=== PATIENT | female | born 1975 | race African-American/Black ===

== ENCOUNTER 2018-08-13 11:51 | Emergency (ER) | payer MEDICAID ==
[~2018-08-13] VITALS: Ht 152.4 cm; Wt 100.0 kg
[2018-08-13 16:13] VITALS: BP 153/90
== END 2018-08-13 18:04 | disposition left against medical advice (07) ==
LOC: ER 11:51
DX: Z53.21 Procedure and treatment not carried out due to patient leaving prior to being seen by health care provider (principal)
CPT/HCPCS: 93005

== ENCOUNTER 2018-10-06 13:00 | Emergency (ER) | payer MEDICAID ==
[~2018-10-06] VITALS: Ht 162.6 cm; Wt 115.0 kg
[2018-10-06 13:38] LABS: BASOPHILS % 0.5 % (0.0-2.0); EOSINOPHILS % 0.1 % (0.0-5.0); HEMATOCRIT. 40.7 % (36.0-48.0); HEMOGLOBIN. 13.5 g/dL (12.0-16.0); LYMPHOCYTES % 15.6 % (20.0-50.0); MEAN CORPUSCULAR HEMOGLOBIN 26.9 pg (28.0-32.0); MEAN CORPUSCULAR VOLUME 81.3 fL (81.0-99.0); MEAN PLATELET VOLUME 8.2 fl (7.4-10.4); MONOCYTES % 2.5 % (2.0-8.0); NEUTROPHILS % 81.3 % (40.0-76.0); PLATELET 372 x1000/uL (130-400); RED BLOOD CELL COUNT 5.01 mill/uL (4.2-5.4); RED CELL DISTRIBUTION WIDTH 14.7 % (11.6-14.6)
[2018-10-06 13:44] LABS: PROTHROMBIN TIME 10.5 sec (9.6-11.0)
[2018-10-06 14:05] LABS: CHLORIDE 107 mEq/L (98-107)
[2018-10-06 14:40] LABS: CLARITY URINE CLEAR (CLEAR); COLOR URINE YELLOW (YELLOW); KETONES URINE 3+ (NEGATIVE); LEUKOCYTE ESTERASE URINE NEGATIVE (NEGATIVE); NITRITE URINE NEGATIVE (NEGATIVE); OCCULT BLOOD URINE NEGATIVE (NEGATIVE); PROTEIN URINE NEGATIVE (NEGATIVE); SPECIFIC GRAVITY URINE 1.033 (1.005-1.030)
[2018-10-06] MEDS ORDERED: ONDANSETRON HCL 4MG/2ML INJ IV ONE (16:30)
[2018-10-06] MEDS ORDERED: FENTANYL CITRATE/PF 50MCG/ML 2ML VIAL IV ONE (16:30)
[2018-10-06] MEDS ORDERED: SODIUM CHLORIDE 0.9% 1,000 ML IV ONE (16:30)
[2018-10-06 17:06] VITALS: BP 117/63
== END 2018-10-06 18:02 | disposition home or self-care (01) ==
LOC: ER 13:00
DX: R10.33 Periumbilical pain (principal); R11.2 Nausea with vomiting, unspecified; E86.0 Dehydration; K59.00 Constipation, unspecified; R06.02 Shortness of breath; E87.6 Hypokalemia; K57.30 Diverticulosis of large intestine without perforation or abscess without bleeding; C50.919 Malignant neoplasm of unspecified site of unspecified female breast; I10 Essential (primary) hypertension; Z71.89 Other specified counseling
CPT/HCPCS: 36415; 71045; 74176; 80053; 81003; 81025; 83690; 84484; 85025; 85610; 93005; 96374; 96375; 99284; J2405; J3010; J7030; Z7610

== ENCOUNTER 2019-02-06 03:05 | Emergency (ER) | payer MEDICAID ==
[~2019-02-06] VITALS: Ht 162.6 cm; Wt 109.0 kg
[2019-02-06] MEDS ORDERED: MORPHINE SULFATE 4 MG/ML CPJ (NOT FOR IM USE) IV STA (03:25)
[2019-02-06] MEDS ORDERED: ONDANSETRON HCL 4MG/2ML INJ IV STA (03:25)
[2019-02-06 03:39] LABS: BASOPHILS % 0.7 % (0.0-2.0); HEMATOCRIT. 39.4 % (36.0-48.0); HEMOGLOBIN. 13.5 g/dL (12.0-16.0); LYMPHOCYTES % 14.1 % (20.0-50.0); MEAN CORPUSCULAR HEMOGLOBIN 28.3 pg (28.0-32.0); MEAN CORPUSCULAR VOLUME 82.5 fL (81.0-99.0); MEAN PLATELET VOLUME 8.4 fl (7.4-10.4); MONOCYTES % 3.5 % (2.0-8.0); NEUTROPHILS % 81.7 % (40.0-76.0); PLATELET 346 x1000/uL (130-400); RED BLOOD CELL COUNT 4.77 mill/uL (4.2-5.4); RED CELL DISTRIBUTION WIDTH 14.4 % (11.6-14.6)
[2019-02-06 03:46] LABS: CHLORIDE 102 mEq/L (98-107)
[2019-02-06 03:48] LABS: PARTIAL THROMBOPLASTIN TIME 27.2 sec (23.4-31.0); PROTHROMBIN TIME 10.7 sec (9.6-11.0)
[2019-02-06] MEDS ORDERED: POTASSIUM CHLORIDE INJ 40 MEQ in DEXT 5% WATER 500 ML IV NR (04:00)
[2019-02-06] MEDS ORDERED: KETOROLAC 30MG/ML VIAL IV ONE (05:15)
[2019-02-06] MEDS ORDERED: IOHEXOL-350 100 ML BOTTLE ONE (06:03)
[2019-02-06 07:58] VITALS: BP 171/86
== END 2019-02-06 07:58 | disposition home or self-care (01) ==
LOC: ER 03:24
DX: R07.89 Other chest pain (principal); I10 Essential (primary) hypertension; C50.919 Malignant neoplasm of unspecified site of unspecified female breast
CPT/HCPCS: 36415; 71275; 80053; 81025; 83880; 84484; 85025; 85610; 85730; 93005; 96365; 96375; 99284; J1885; J2270; J2405; J3480; J7060; Q9967

== ENCOUNTER 2019-03-27 21:37 | Emergency (ER) | payer MEDICAID ==
[~2019-03-27] VITALS: Ht 172.7 cm; Wt 77.0 kg
[2019-03-27] MEDS ORDERED: KETOROLAC 30MG/ML VIAL IV STA (22:26)
[2019-03-27] MEDS ORDERED: ONDANSETRON HCL 4MG/2ML INJ IV STA (22:26)
[2019-03-27 23:02] LABS: BASOPHILS % 0.4 % (0.0-2.0); EOSINOPHILS % 0.3 % (0.0-5.0); HEMATOCRIT. 43.8 % (36.0-48.0); HEMOGLOBIN. 14.6 g/dL (12.0-16.0); LYMPHOCYTES % 11.6 % (20.0-50.0); MEAN CORPUSCULAR HEMOGLOBIN 27.9 pg (28.0-32.0); MEAN CORPUSCULAR VOLUME 83.6 fL (81.0-99.0); MEAN PLATELET VOLUME 8.4 fl (7.4-10.4); MONOCYTES % 2.4 % (2.0-8.0); NEUTROPHILS % 85.3 % (40.0-76.0); PLATELET 333 x1000/uL (130-400); RED BLOOD CELL COUNT 5.24 mill/uL (4.2-5.4); RED CELL DISTRIBUTION WIDTH 14.3 % (11.6-14.6)
[2019-03-27 23:07] LABS: CHLORIDE 105 mEq/L (98-107)
[2019-03-28] MEDS ORDERED: POTASSIUM CHLORIDE 20MEQ TABLET SR PO SCH (00:15)
[2019-03-28] MEDS ORDERED: MORPHINE SULFATE 4 MG/ML CPJ (NOT FOR IM USE) IV SCH (02:15)
[2019-03-28] MEDS ORDERED: ONDANSETRON HCL 4MG TABLET PO SCH (02:15)
[2019-03-28 02:22] LABS: CLARITY URINE CLOUDY (CLEAR); COLOR URINE YELLOW (YELLOW); KETONES URINE 2+ (NEGATIVE); LEUKOCYTE ESTERASE URINE NEGATIVE (NEGATIVE); NITRITE URINE NEGATIVE (NEGATIVE); OCCULT BLOOD URINE NEGATIVE (NEGATIVE); PROTEIN URINE TRACE (NEGATIVE); SPECIFIC GRAVITY URINE 1.015 (1.005-1.030); UROBILINOGEN URINE 0.2 E.U./dL (0.2-1.0)
[2019-03-28 04:00] VITALS: BP 159/80
== END 2019-03-28 04:16 | disposition home or self-care (01) ==
LOC: ER 21:37
DX: R10.30 Lower abdominal pain, unspecified (principal); R11.2 Nausea with vomiting, unspecified; I10 Essential (primary) hypertension; E66.9 Obesity, unspecified; Z85.3 Personal history of malignant neoplasm of breast; Z68.25 Body mass index [BMI] 25.0-25.9, adult
CPT/HCPCS: 36415; 71045; 74176; 80053; 81003; 81025; 83605; 83690; 85025; 93005; 96374; 96375; 99284; J1885; J2270; J2405; Q0162

== ENCOUNTER 2020-01-05 20:48 | Inpatient (IN) | payer MEDICAID ==
[~2020-01-05] VITALS: Ht 152.4 cm; Wt 90.7 kg
[2020-01-05] MEDS ORDERED: ONDANSETRON HCL 4MG/2ML INJ IV STA (22:36)
[2020-01-05] MEDS ORDERED: SODIUM CHLORIDE 0.9% 1,000 ML IV ONE (22:36)
[2020-01-05] MEDS ORDERED: KETOROLAC 30MG/ML VIAL IV STA (22:36)
[2020-01-05 23:32] LABS: CLARITY URINE CLEAR (CLEAR); COLOR URINE YELLOW (YELLOW); KETONES URINE 3+ (NEGATIVE); LEUKOCYTE ESTERASE URINE NEGATIVE (NEGATIVE); NITRITE URINE NEGATIVE (NEGATIVE); OCCULT BLOOD URINE TRACE (NEGATIVE); PROTEIN URINE NEGATIVE (NEGATIVE); SPECIFIC GRAVITY URINE 1.018 (1.005-1.030); UROBILINOGEN URINE 0.2 E.U./dL (0.2-1.0)
[2020-01-05 23:43] LABS: CHLORIDE 104 mEq/L (98-107)
[2020-01-05 23:45] LABS: *AMPHETAMINES SCREEN URINE NEGATIVE (NEGATIVE); *BARBITURATES SCREEN URINE NEGATIVE (NEGATIVE); *BENZODIAZEPINES SCREEN URINE NEGATIVE (NEGATIVE); *COCAINE SCREEN URINE NEGATIVE (NEGATIVE); METHADONE URINE SCREEN NEGATIVE (NEGATIVE); OPIATES URINE SCREEN NEGATIVE (NEGATIVE); PHENCYCLIDINE URINE SCREEN NEGATIVE (NEGATIVE)
[2020-01-05 23:45] LABS: INR 1.1; PROTHROMBIN TIME 11.2 sec (9.6-11.0)
[2020-01-05 23:47] LABS: ETHANOL BLOOD < 10 mg/dL
[2020-01-05 23:49] LABS: BASOPHILS % 0.7 % (0.0-2.0); EOSINOPHILS % 0.1 % (0.0-5.0); HEMATOCRIT. 42.6 % (36.0-48.0); LYMPHOCYTES % 15.4 % (20.0-50.0); MEAN CORPUSCULAR HEMOGLOBIN 27.9 pg (28.0-32.0); MEAN CORPUSCULAR VOLUME 84.8 fL (81.0-99.0); MEAN PLATELET VOLUME 9.6 fl (7.4-10.4); MONOCYTES % 2.5 % (2.0-8.0); NEUTROPHILS % 81.3 % (40.0-76.0); PLATELET 317 x1000/uL (130-400); RED BLOOD CELL COUNT 5.03 mill/uL (4.2-5.4); RED CELL DISTRIBUTION WIDTH 14.4 % (11.6-14.6)
[2020-01-05 23:52] LABS: CANNABINOID URINE SCREEN PRESUMTIVE POSITIVE (NEGATIVE)
[2020-01-06] VITALS (7 sets, daily range): BP systolic 98–187; BP diastolic 53–106
[2020-01-06] MEDS ORDERED: POTASSIUM CHLORIDE INJ 40 MEQ in DEXT 5% WATER 500 ML IV ONE ×2
[2020-01-06] MEDS ORDERED: POTASSIUM CHLORIDE 20MEQ TABLET SR PO ONE
[2020-01-06] MEDS ORDERED: MORPHINE SULFATE 4 MG/ML CPJ (NOT FOR IM USE) IV STA (01:09)
[2020-01-06] MEDS ORDERED: ONDANSETRON HCL 4MG/2ML INJ IV STA (01:09)
[2020-01-06] MEDS ORDERED: HYDRALAZINE 20MG/ML VIAL IV ONE ×2 (01:15→03:15)
[2020-01-06] MEDS ORDERED: LORAZEPAM 2MG/ML CPJ IV ONE (03:15)
[2020-01-06] MEDS ORDERED: MORPHINE SULFATE 2 MG/ML CPJ (NOT FOR IM USE) IV PRN (05:15)
[2020-01-06] MEDS ORDERED: CLONIDINE 0.1MG TABLET PO PRN (05:15)
[2020-01-06] MEDS: LISINOPRIL 20MG TABLET PO SCH (06:40)
[2020-01-06] MEDS: AMLODIPINE 10MG TABLET PO SCH (06:40)
[2020-01-06] MEDS ORDERED: LABETALOL 5MG/ML SYR 20 MG/4 ML SYRINGE IV NR (08:45)
[2020-01-06] MEDS ORDERED: POTASSIUM CHLORIDE 20MEQ TABLET SR PO NR ×2 (08:45→15:45)
[2020-01-06] MEDS: ONDANSETRON HCL 4MG/2ML INJ IV PRN ×2 (10:03→18:48)
[2020-01-06] MEDS: OMEPRAZOLE 20MG CAPSULE EXTENDED RELEASE PO SCH (10:03)
[2020-01-06] MEDS ORDERED: ASPIRIN 81MG TABLET PO SCH (12:00)
[2020-01-06] MEDS: POTASSIUM CHLORIDE INJ 40 MEQ in DEXT 5% WATER 250 ML IV SCH ×2 (13:00→13:33)
[2020-01-06] MEDS ORDERED: DIATR MEGLU/DIATRIZOATE SOLN 30ML PO SCH (13:15)
[2020-01-06] MEDS: HYDROMORPHONE HCL/PF 2MG/ML CPJ IV PRN ×3 (13:34→22:57)
[2020-01-06] MEDS ORDERED: POTASSIUM CHLORIDE INJ 40 MEQ in DEXT 5% WATER 250 ML IV PRN ×2 (16:00→18:30)
[2020-01-06] MEDS ORDERED: OXYC-105 MT (16:12)
[2020-01-06] MEDS ORDERED: AMLO2.5T45 MT (16:12)
[2020-01-06] MEDS: DEXT 5%/0.45% NACL KCL 40MEQ/L 1,000 ML IV SCH (16:14)
[2020-01-06] MEDS ORDERED: IOHEXOL-350 100 ML BOTTLE ONE (23:15)
[2020-01-07] MEDS: HYDROMORPHONE HCL/PF 2MG/ML CPJ IV PRN ×4 (03:52→18:29)
[2020-01-07 04:00] VITALS: BP 121/57
[2020-01-07] MEDS: DEXT 5%/0.45% NACL KCL 40MEQ/L 1,000 ML IV SCH ×2 (05:28→18:31)
[2020-01-07] MEDS: OMEPRAZOLE 20MG CAPSULE EXTENDED RELEASE PO SCH (07:03)
[2020-01-07 07:49] LABS: BASOPHILS % 0.4 % (0.0-2.0); EOSINOPHILS % 0.7 % (0.0-5.0); HEMOGLOBIN. 12.9 g/dL (12.0-16.0); MEAN CORPUSCULAR HEMOGLOBIN 27.9 pg (28.0-32.0); MEAN CORPUSCULAR VOLUME 84.2 fL (81.0-99.0); MONOCYTES % 8.4 % (2.0-8.0); NEUTROPHILS % 58.5 % (40.0-76.0); PLATELET 290 x1000/uL (130-400); RED BLOOD CELL COUNT 4.63 mill/uL (4.2-5.4); RED CELL DISTRIBUTION WIDTH 14.1 % (11.6-14.6)
[2020-01-07 08:00] VITALS: BP 114/65
[2020-01-07] MEDS: LISINOPRIL 20MG TABLET PO SCH (08:53)
[2020-01-07] MEDS: AMLODIPINE 10MG TABLET PO SCH (08:54)
[2020-01-07 12:00] VITALS: BP 80/41
[2020-01-07 12:05] VITALS: BP 83/47
[2020-01-07] MEDS ORDERED: SODIUM CHLORIDE 0.9% 500 ML IV ONE (12:30)
[2020-01-07] MEDS: ONDANSETRON HCL 4MG/2ML INJ IV PRN ×2 (13:25→19:44)
[2020-01-07 16:00] VITALS: BP 88/54
[2020-01-07 20:00] VITALS: BP 97/51
[2020-01-07] MEDS ORDERED: BISACODYL 5MG TABLET PO NR (21:30)
[2020-01-07] MEDS ORDERED: METOCLOPRAMIDE HCL 10MG/2ML VIAL IV NR (21:30)
[2020-01-07] MEDS ORDERED: SORBITOL 70% SOLN 30ML PO NR (22:00)
[2020-01-07] MEDS: HYDROCODONE/ACETAMINOPHEN 10/325MG TABLET PO PRN (22:23)
[2020-01-08] VITALS: BP 136/75
[2020-01-08] MEDS: HYDROMORPHONE HCL/PF 2MG/ML CPJ IV PRN ×5 (00:37→23:34)
[2020-01-08 04:00] VITALS: BP 135/79
[2020-01-08] MEDS ORDERED: METOCLOPRAMIDE HCL 10MG/2ML VIAL IV NR ×2 (04:00→08:00)
[2020-01-08] MEDS ORDERED: BISACODYL 5MG TABLET PO NR ×2 (04:00→08:00)
[2020-01-08] MEDS ORDERED: SORBITOL 70% SOLN 30ML PO NR ×2 (04:30→08:30)
[2020-01-08] MEDS: OMEPRAZOLE 20MG CAPSULE EXTENDED RELEASE PO SCH (05:59)
[2020-01-08 08:00] VITALS: BP 135/60
[2020-01-08] MEDS: DEXT 5%/0.45% NACL KCL 40MEQ/L 1,000 ML IV SCH ×2 (08:35→18:33)
[2020-01-08 11:17] LABS: CHLORIDE 110 mEq/L (98-107)
[2020-01-08 11:20] LABS: BASOPHILS % 0.9 % (0.0-2.0); EOSINOPHILS % 1.2 % (0.0-5.0); HEMATOCRIT. 42.4 % (36.0-48.0); LYMPHOCYTES % 43.7 % (20.0-50.0); MEAN CORPUSCULAR HEMOGLOBIN 28.3 pg (28.0-32.0); MEAN PLATELET VOLUME 9.3 fl (7.4-10.4); MONOCYTES % 8.9 % (2.0-8.0); NEUTROPHILS % 45.3 % (40.0-76.0); PLATELET 326 x1000/uL (130-400); RED BLOOD CELL COUNT 4.93 mill/uL (4.2-5.4); RED CELL DISTRIBUTION WIDTH 14.4 % (11.6-14.6)
[2020-01-08 12:00] VITALS: BP 126/69
[2020-01-08 16:00] VITALS: BP 114/79
[2020-01-08 17:32] LABS: INR 1.1; PARTIAL THROMBOPLASTIN TIME 30.8 sec (23.4-31.0); PROTHROMBIN TIME 11.5 sec (9.6-11.0)
[2020-01-08] MEDS ORDERED: POTASSIUM CHLORIDE 20MEQ TABLET SR PO NR (18:15)
[2020-01-08 20:00] VITALS: BP 137/67
[2020-01-08] MEDS ORDERED: FENTANYL CITRATE/PF 50MCG/ML 2ML VIAL ONE (21:03)
[2020-01-08] MEDS ORDERED: BUPIVACAINE HCL/PF 0.25% (2.5MG/ML) 10ML ONE (21:04)
[2020-01-08] MEDS: ONDANSETRON HCL 4MG/2ML INJ IV PRN (23:49)
[2020-01-09] VITALS: BP 132/86
[2020-01-09] MEDS: HYDROCODONE/ACETAMINOPHEN 10/325MG TABLET PO PRN (02:19)
[2020-01-09 04:00] VITALS: BP 125/69
[2020-01-09] MEDS ORDERED: BISACODYL 5MG TABLET PO NR (04:00)
[2020-01-09] MEDS ORDERED: METOCLOPRAMIDE HCL 10MG/2ML VIAL IV NR (04:00)
[2020-01-09] MEDS ORDERED: SORBITOL 70% SOLN 30ML PO NR (05:00)
[2020-01-09] MEDS: OMEPRAZOLE 20MG CAPSULE EXTENDED RELEASE PO SCH (07:18)
[2020-01-09 08:00] VITALS: BP 108/70
[2020-01-09] MEDS: DEXT 5%/0.45% NACL KCL 40MEQ/L 1,000 ML IV SCH ×2 (08:23→22:18)
[2020-01-09 08:48] LABS: BASOPHILS % 1.5 % (0.0-2.0); EOSINOPHILS % 1.4 % (0.0-5.0); HEMATOCRIT. 41.6 % (36.0-48.0); HEMOGLOBIN. 13.8 g/dL (12.0-16.0); MEAN CORPUSCULAR HEMOGLOBIN 28.3 pg (28.0-32.0); MEAN CORPUSCULAR VOLUME 84.9 fL (81.0-99.0); MEAN PLATELET VOLUME 8.4 fl (7.4-10.4); MONOCYTES % 10.4 % (2.0-8.0); NEUTROPHILS % 42.7 % (40.0-76.0); PLATELET 341 x1000/uL (130-400)
[2020-01-09 09:02] LABS: CHLORIDE 112 mEq/L (98-107)
[2020-01-09] MEDS: HYDROMORPHONE HCL/PF 2MG/ML CPJ IV PRN ×3 (09:53→20:22)
[2020-01-09 12:00] VITALS: BP 115/82
[2020-01-09 16:00] VITALS: BP 132/87
[2020-01-09 20:00] VITALS: BP 138/90
[2020-01-09] MEDS: ONDANSETRON HCL 4MG/2ML INJ IV PRN (20:22)
[2020-01-09] MEDS: HYDROCORTISONE ACETATE 25MG SUPP PR SCH (20:44)
[2020-01-09] MEDS ORDERED: ZOLPIDEM TARTRATE 5MG TABLET PO PRN (20:45)
[2020-01-10] VITALS: BP 101/70
[2020-01-10 04:00] VITALS: BP 131/89
[2020-01-10 06:12] LABS: BASOPHILS % 0.6 % (0.0-2.0); EOSINOPHILS % 1.8 % (0.0-5.0); HEMATOCRIT. 39.8 % (36.0-48.0); HEMOGLOBIN. 13.2 g/dL (12.0-16.0); LYMPHOCYTES % 44.3 % (20.0-50.0); MEAN CORPUSCULAR VOLUME 84.7 fL (81.0-99.0); MONOCYTES % 7.5 % (2.0-8.0); NEUTROPHILS % 45.8 % (40.0-76.0); PLATELET 337 x1000/uL (130-400); RED CELL DISTRIBUTION WIDTH 13.9 % (11.6-14.6)
[2020-01-10 06:20] LABS: CHLORIDE 107 mEq/L (98-107)
[2020-01-10] MEDS: OMEPRAZOLE 20MG CAPSULE EXTENDED RELEASE PO SCH (06:36)
[2020-01-10] MEDS: ONDANSETRON HCL 4MG/2ML INJ IV PRN (07:56)
[2020-01-10 08:00] VITALS: BP 139/103
[2020-01-10] MEDS: HYDROMORPHONE HCL/PF 2MG/ML CPJ IV PRN (08:09)
[2020-01-10] MEDS: HYDROCORTISONE ACETATE 25MG SUPP PR SCH (09:11)
[2020-01-10] MEDS ORDERED: OMEP20CA14 PO (10:04)
[2020-01-10] MEDS ORDERED: POTASSIUM CHLORIDE 20MEQ TABLET SR PO NR (10:15)
[2020-01-10 10:25] VITALS: BP 139/90
== END 2020-01-10 11:00 | disposition home or self-care (01) | DRG 241 ==
LOC: ER 20:55 → 5WST 01-06 02:27 → EDBEDREQSVC 01-06 05:09 → EDBEDREQTM 01-06 05:09 → ENRESERV 01-06 07:29
PROVIDERS: ADMIT Internal Medicine; ATTEND Internal Medicine
DX: K29.70 Gastritis, unspecified, without bleeding (principal); K21.9 Gastro-esophageal reflux disease without esophagitis; K27.9 Peptic ulcer, site unspecified, unspecified as acute or chronic, without hemorrhage or perforation; I16.0 Hypertensive urgency; E87.6 Hypokalemia; E66.9 Obesity, unspecified; I10 Essential (primary) hypertension; F12.90 Cannabis use, unspecified, uncomplicated; I95.9 Hypotension, unspecified; D25.9 Leiomyoma of uterus, unspecified; K64.9 Unspecified hemorrhoids; K76.0 Fatty (change of) liver, not elsewhere classified; G89.29 Other chronic pain; Z68.39 Body mass index [BMI] 39.0-39.9, adult; Z03.818 Encounter for observation for suspected exposure to other biological agents ruled out; F11.90 Opioid use, unspecified, uncomplicated; R07.89 Other chest pain
CPT/HCPCS: 36415; 74176; 74177; 76830; 76856; 80048; 80053; 80305; 80320; 81003; 83735; 84132; 84484; 85025; 87635; 93005; 99285; J0360; J1170; J1885; J2060; J2270; J2405; J2765; J3010; J3480; J3490; J7030; J7060; Q9963; Q9967; G0480; U0003-CS

== ENCOUNTER 2020-04-13 16:48 | Emergency (ER) | payer MEDICAID ==
[~2020-04-13] VITALS: Ht 152.4 cm; Wt 100.0 kg
[~2020-04-13 16:48] MED LIST: AMLO2.5T45 MT; OMEP20CA14 PO; OXYC-105 MT
[2020-04-13] MEDS ORDERED: ASPIRIN 81MG TABLET PO ONE (17:00)
[2020-04-13] MEDS ORDERED: ONDANSETRON HCL 4MG/2ML INJ IV ONE (17:15)
[2020-04-13] MEDS ORDERED: MORPHINE SULFATE 4 MG/ML CPJ (NOT FOR IM USE) IV ONE ×2 (17:15→20:15)
[2020-04-13 18:26] LABS: BASOPHILS % 0.4 % (0.0-2.0); HEMATOCRIT. 39.2 % (36.0-48.0); HEMOGLOBIN. 13.1 g/dL (12.0-16.0); LYMPHOCYTES % 11.1 % (20.0-50.0); MEAN CORPUSCULAR HEMOGLOBIN 28.3 pg (28.0-32.0); MEAN CORPUSCULAR VOLUME 84.8 fL (81.0-99.0); MEAN PLATELET VOLUME 8.8 fl (7.4-10.4); MONOCYTES % 1.9 % (2.0-8.0); NEUTROPHILS % 86.6 % (40.0-76.0); PLATELET 333 x1000/uL (130-400); RED BLOOD CELL COUNT 4.63 mill/uL (4.2-5.4); RED CELL DISTRIBUTION WIDTH 14.7 % (11.6-14.6)
[2020-04-13 18:31] LABS: CHLORIDE 110 mEq/L (98-107)
[2020-04-13 18:35] LABS: PARTIAL THROMBOPLASTIN TIME 25.4 sec (23.4-31.0); PROTHROMBIN TIME 10.6 sec (9.6-11.0)
[2020-04-13 18:36] LABS: ETHANOL BLOOD < 10 mg/dL
[2020-04-13 18:52] LABS: *AMPHETAMINES SCREEN URINE NEGATIVE (NEGATIVE); *BARBITURATES SCREEN URINE NEGATIVE (NEGATIVE); *BENZODIAZEPINES SCREEN URINE NEGATIVE (NEGATIVE); *COCAINE SCREEN URINE NEGATIVE (NEGATIVE)
[2020-04-13 18:53] LABS: METHADONE URINE SCREEN NEGATIVE (NEGATIVE); OPIATES URINE SCREEN NEGATIVE (NEGATIVE); PHENCYCLIDINE URINE SCREEN NEGATIVE (NEGATIVE)
[2020-04-13 19:12] LABS: CANNABINOID URINE SCREEN PRESUMTIVE POSITIVE (NEGATIVE)
[2020-04-13] MEDS ORDERED: HALOPERIDOL LACTATE 5MG/ML VIAL IM ONE (20:15)
[2020-04-13] MEDS ORDERED: CLONIDINE 0.2MG TABLET PO NR (21:45)
[2020-04-14] MEDS ORDERED: DICYCLOMINE HCL 10MG CAPSULE PO ONE (01:15)
[2020-04-14] MEDS ORDERED: CLONIDINE 0.2MG TABLET PO ONE (01:30)
[2020-04-14] MEDS ORDERED: ONDANSETRON HCL 4MG/2ML INJ IV ONE (02:00)
[2020-04-14 03:40] VITALS: BP 159/89
== END 2020-04-14 03:49 | disposition short-term general hospital (02) ==
LOC: ER 16:48 → CANBEDREQ 04-14 05:34
DX: R10.13 Epigastric pain (principal); R07.89 Other chest pain; F12.10 Cannabis abuse, uncomplicated
CPT/HCPCS: 36415; 71045; 74176; 80053; 80305; 80320; 81025; 83690; 83880; 84478; 84484; 85025; 85610; 85730; 93005; 96372; 96374; 96375; 96376; 99285; J1630; J2270; J2405; G0480

== ENCOUNTER 2024-09-10 10:20 | Emergency (ER) | payer MEDICAID ==
[~2024-09-10] VITALS: Ht 170.2 cm; Wt 115.0 kg
[2024-09-10 10:23] VITALS: BP 163/89; PULSE 67; RESP 18; TEMP 37.1; O2SAT 100
[2024-09-10] MEDS ORDERED: LACTATED RINGERS 1,000 ML IV SCH (11:00)
[2024-09-10 11:25] LABS: BASOPHILS % 0.3 % (0.0-2.0); HEMATOCRIT. 41.5 % (36.0-48.0); HEMOGLOBIN. 13.3 g/dL (12.0-16.0); LYMPHOCYTES % 27.4 % (20.0-50.0); MEAN CORPUSCULAR HEMOGLOBIN 26.1 pg (28.0-32.0); MEAN CORPUSCULAR VOLUME 81.6 fL (81.0-99.0); MEAN PLATELET VOLUME 7.4 fl (7.4-10.4); MONOCYTES % 6.7 % (2.0-8.0); NEUTROPHILS % 64.6 % (40.0-76.0); PLATELET 406 x1000/uL (130-400); RED BLOOD CELL COUNT 5.09 mill/uL (4.2-5.4); RED CELL DISTRIBUTION WIDTH 14.7 % (11.6-14.6); WHITE BLOOD COUNT 6.9 x1000/uL (4.5-11.0)
[2024-09-10 11:37] LABS: CHLORIDE 110 mEq/L (98-107); POTASSIUM 3.4 mEq/L (3.5-5.1); SODIUM 141 mEq/L (136-145)
[2024-09-10 11:38] LABS: CARBON DIOXIDE 22 mEq/L (21-32)
[2024-09-10 11:43] LABS: CREATININE 0.9 mg/dL (0.6-1.0); GLUCOSE 94 mg/dL (70-105)
[2024-09-10 11:44] LABS: UREA NITROGEN BLOOD 7 mg/dL (9-23)
[2024-09-10 11:45] LABS: ALANINE AMINOTRANSFERASE 12 IU/L (10-49); ALBUMIN 4.4 g/dL (3.2-4.8); ASPARTATE AMINOTRANSFERASE 17 IU/L (<34)
[2024-09-10 11:46] LABS: BILIRUBIN DIRECT 0.2 mg/dL (<=3.0); BILIRUBIN TOTAL 0.6 mg/dL (0.1-1.0); PROTEIN TOTAL 7.9 g/dL (6.0-8.3)
[2024-09-10] MEDS: FAMOTIDINE 20MG/2ML VIAL IV ONE (11:48)
[2024-09-10] MEDS: MAGNESIUM/ALUMINUM HYDROXIDE/SIMETHICONE 30ML UDC PO ONE (11:48)
[2024-09-10] MEDS: ONDANSETRON HCL 4MG/2ML INJ IV ONE (11:48)
== END 2024-09-10 12:08 | disposition left against medical advice (07) ==
LOC: ER 10:20
DX: R10.13 Epigastric pain (principal); F12.10 Cannabis abuse, uncomplicated; Z88.0 Allergy status to penicillin
CPT/HCPCS: 80076; 80048; 83690; 85025; 36415; 96374; 96375; 99284; J3490; J2405; Z7610 ×2